=== PATIENT | male | born 1995 | race Two or more races ===

== ENCOUNTER 2020-10-04 10:21 | Emergency (ER) | payer SELFPAY ==
[~2020-10-04] VITALS: Ht 167.6 cm; Wt 71.3 kg
[2020-10-04 10:31] VITALS: BP 150/91
--- NOTE | 2020-10-04 11:07 | NUR ---
Paolo, psych INFECTION PREVENTION PRACTITIONER at bedside for eval.
[2020-10-04] MEDS ORDERED: ARIPIPRAZOLE 5 MG TABLET PO SCH (12:00)
[2020-10-04] MEDS ORDERED: ARIPIPRAZOLE 5 MG TABLET ONE (12:13)
== END 2020-10-04 12:51 | disposition home or self-care (01) ==
LOC: ED 12:39
DX: F31.81 Bipolar II disorder (principal); F41.1 Generalized anxiety disorder
CPT/HCPCS: 99284